=== PATIENT | male | born 1985 | race Asian ===

== ENCOUNTER 2024-12-28 19:25 | Emergency (ER) | payer MEDICAID ==
[~2024-12-28] VITALS: Ht 165.1 cm; Wt 70.0 kg
[2024-12-28 19:30] VITALS: BP 145/111; PULSE 61; RESP 18; TEMP 98.2; O2SAT 95
== END 2024-12-28 20:07 | disposition home or self-care (01) ==
LOC: ER 19:26
DX: S00.531A Contusion of lip, initial encounter (principal); V49.40XA Driver injured in collision with unspecified motor vehicles in traffic accident, initial encounter; Y93.89 Activity, other specified; Y92.89 Other specified places as the place of occurrence of the external cause; Y99.8 Other external cause status
CPT/HCPCS: 99283

== ENCOUNTER 2025-07-03 12:04 | Emergency (ER) | payer MEDICAID ==
[~2025-07-03] VITALS: Ht 162.6 cm; Wt 58.5 kg
[2025-07-03 13:09] LABS: CREATININE 1.25 MG/DL (0.60-1.10); TOTAL CARBON DIOXIDE 28.9 MMOL/L (24-32); eCRCL 66 ML/MIN; eGFR 64 ML/MIN
[2025-07-03 13:30] LABS: MEAN PLATELET VOLUME 8.4 FL (7.4-10.4); RED CELL DISTRIBUTION WIDTH 16.1 % (11.5-14.5)
[2025-07-03 13:57] LABS: BANDS% (MANUAL) 13.0 % (0-10); LARGE PLATELETS FEW; LYMPHOCYTES % (MANUAL) 5.0 % (21-51); MONOCYTES % (MANUAL) 8.0 % (2-12); NEUTROPHILS % (MANUAL) 74.0 % (42-75); PLATELET ESTIMATE NORMAL
[2025-07-03] MEDS: potassium Cl 40MEQ/1/2NS 520ml 520 ML IV ONE (14:33)
[2025-07-03] MEDS: potassium Cl 20 mEq SR tablet PO ONE (14:33)
--- NOTE | 2025-07-03 14:52 | Physician Documentation ---
History of Present Illness Chief Complaint: Abdominal Pain Stated Complaint: GENERAL ILLNESS Time Seen by MD: 13:12 OK to notify your PCP?: Yes Source: patient Mode of Arrival: POV Exam Limitations: no limitations HPI 39 y/o male with c/o abdominal pain which is all over, but mostly LUQ, and started 3days ago. Patient reports he is heavy alcoholic drinking at least a pint of alcohol a day for years. He has never had anything like this before. His last drink of alcohol was two days ago due to his symptoms. He reports he has been nauseated, vomiting and had liquid diarrhea for the past few days as well. He also states he has been intermittently hallucinating and feels tremulous. He was brought in today by his niece who is currently visiting as they are having a family celebration of life for his brother who recently from alcoholism. Niece reports very strong history of alcoholism. No prior abdominal surgeries. Additional note by Mac Aguirre DO: I took over the care of this patient from previous physician. I reviewed any previous notes available, obtain my own history, review of systems and physical examination was performed by myself. 39-year-old gentleman who is here for abdominal pain, history of alcoholism, confirms the story. At the time of my examination he reports an episode of diarrhea where he has stooled on himself while in the hospital bed. It does not report hallucinations. Medication Reconciliation Allergies: Coded Allergies: No Known Allergies (Unverified , 07/03/25) Past Medical History Past Medical History: No Pertinent History Drug Use: none Lives with: Spouse Lives In: Home Review of Systems All Other Systems at this time: Reviewed and Negative ROS 10 point review of systems was performed and unless noted above in HPI is negative for acute process/complaint. Physical Exam Vital Signs: Temperature: 97.2, Source: Temporal, Heart Rate: 102, Respiratory Rate: 20, BP: 112/85, Pulse Oximetry: 100, Weight: 58.500 Oxygen Flow Rate: 10.0 Physical Exam GENERAL: Alert, no acute distress. HEENT: NCAT, EOMI, PERRL, normal oropharynx, moist oral mucosa. NECK: Supple, trachea midline. CARDIAC: Regular rhythm, ELEVATED RATE, no murmurs, rubs, or gallops. Equal distal pulses. No lower extremity edema, cap refill less than 2 seconds. RESPIRATORY: Equal breath sounds, clear to auscultation bilaterally, no respiratory distress. GASTROINTESTINAL: Non distended, soft, TTP IN LUQ AND RUQ, No guarding or r ebound. MUSCULOSKELETAL: Normal range of motion, nontender, no swelling. Normal gait. NEUROLOGICAL: Awake, alert, and oriented x 3. SKIN: Warm/dry, no pallor, no rash. PSYCH: Alert and appropriate. Affect congruent with mood. Speech is clear. Good eye contact. Additional note by Mac Aguirre, DO: I took over the care of this patient from previous physician. I reviewed any previous notes available, obtain my own history, review of systems and physical examination was performed by myself. General: Alert to self, place, time, situation. No acute distress. Cardiac: Tachycardic regular. Abdomen: Left upper quadrant tenderness to palpation reproducing chief complaint. No guarding, no rebound. Psych: Occasionally is response to internal stimuli Progress Progress Note SPOKE WITH DR. IZAGUIRRE WHO REVIEWED THE CT SCAN AND FELT THAT THE MASS NEAR THE P ANCREAS AND SPLEEN IS NOT AN ABSCESS BUT MORE CONSISTENT WITH PSEUDOCYST AND FELT PATIENT WAS APPROPRIATE FOR ADMISSION HERE DID NOT FEEL THIS WAS THE CAUSE OF HIS ACUTE SYMPTOMS. PAGE SENT TO HOSPITALIST FOR ADMISSION. SPOKE WITH HOSPITALIST WHO DID NOT FEEL COMFORTABLE ADMITTING HERE DUE TO THE POSSIBILITY THAT THE FLUID COLLECTION IS SOURCE OF PATIENT'S WBC AND RECOMMENDED TRANSFER DISCUSSED WITH ENROLLMENT REPRESENTATIVE TRANSFER TO [facility]. CT SCAN RESULTS BELOW: EXAM: CT CT CHEST ABDOMEN PELVIS IV CON INDICATION: SOB, ABDOMINAL PAIN, SEPSIS TECHNIQUE: Volumetric multidetector CT images of the chest, abdomen and pelvis were obtained after the administration of IV contrast. All CT scans at this facility use dose modulation, iterative reconstruction, and/or weight based dosing when appropriate to reduce radiation dose to as low as reasonably achievable. COMPARISON: None FINDINGS: LOWER NECK: Unremarkable LYMPH NODES/MEDIASTINUM: No abnormal lymph nodes by CT size criteria. CARDIOVASCULAR: Normal cardiac size. No pericardial effusion. No aneurysmal dilatation of the great vessels. LUNG PARENCHYMA/PLEURAL SPACE: Trace left pleural effusion. Atelectasis in bilateral lung bases. Minimal tracheal secretions CHEST WALL: Mild bilateral gynecomastia. LIVER: Hepatomegaly with geographic areas of hypoattenuation which may represent fatty deposition. Slight volume and contour change may be indicative of chronic liver disease GALLBLADDER/BILIARY TREE: Layering cholelithiasis SPLEEN: Unremarkable. PANCREAS: Significant pancreatic tail peripancreatic abscess formation with thick-walled appearance. Abnormal abscess/fluid collections extending into the perisplenic space causing mass effect abscess is largely contiguous and inferior most portion which is dominant in size measures 11.5 x 9.9 x 16 cm. Sequelae of chronic pancreatitis with coarse calcification. Likely superimposed acute on chronic pancreatitis with interstitial marginal edema ADRENAL GLANDS: Unremarkable KIDNEYS: No hydronephrosis. BLADDER: Unremarkable for the degree distention. PELVIC ORGANS: Unremarkable. BOWEL/MESENTERY: Mass effect and decompression of the stomach fluid in the colon correlate for loose stool. ASCITES: Absent LYMPHADENOPATHY: Multiple likely reactive retroperitoneal lymph nodes VASCULATURE: No aneurysmal dilatation. ABDOMINAL WALL: Unremarkable. MUSCULOSKELETAL: No acute fracture or aggressive focal osseous lesion. IMPRESSION: 1. Significant pancreatic tail peripancreatic abscess formation with thick- walled appearance. Abnormal abscess/fluid collections extending into the perisplenic space causing mass effect abscess is largely contiguous and inferior most portion which is dominant in size measures 11.5 x 9.9 x 16 cm. 2. Likely superimposed acute on chronic pancreatitis with interstitial marginal edema Patient: FREDI ACEVES Medical Record: [id number] [facility] : 1985, Age: 39 Sex: Male Location: ER Patient Status: [facility] ER Service Date/Time: 07/03/251321 Ordering Physician: RADHA YOUNG Exam: ULTRASOUND OF ABDOMEN ABDOMINAL ULTRASOUND CLINICAL HISTORY: elevated bilirubin, alk phos TECHNIQUE: Multiple grayscale and color Doppler ultrasound images were obtained of the abdomen. WID: COMPARISON: None FINDINGS: Liver and Biliary System: Homogeneous echotexture, normal size measuring 17.11 cm. No focal hepatic observations. No intrahepatic bile duct dilatation. The common duct measures 0.4 cm at the yoko hepatis. The gallbladder contains multiple mobile stones. Gallbladder wall measures 3.4 mm. The sonographic Seymour's sign is negative. The gallbladder is normal caliber.. Pancreas: Visualized portions are unremarkable. Spleen: Is enlarged measuring 13.4 cm. Kidneys: The right kidney is 10.55 cm and the left kidney is 11.3 cm. No hydronephrosis, increased echogenicity, shadowing stone, or focal lesion. Aorta: Visualized portions are normal in caliber. IVC: Visualized portions are normal in caliber. There is a heterogeneous cystic mass adjacent to the pancreas and spleen and adjacent to the left kidney. This measures at least 13.4 x 9.0 x 10.7 cm. IMPRESSION: 1. Cholelithiasis without acute cholecystitis or biliary ductal dilatation. 2. Large heterogeneous cystic mass in the upper abdomen adjacent to the pancrea s, spleen, and left kidney. This is not optimally evaluated on this study and will be characterized on the CT chest abdomen and pelvis that is ordered for today. 3. Mild hepatosplenomegaly. Results/Orders Reviewed/noted all lab results: Yes Results/Orders Orders - RADHA YOUNG Ekg/Acs Symptoms, 12 Hr (07/03/25 ) Potassium Cl 40meq/1/2ns 520ml ([place] (07/03/25 13:25) Observation Status Start (07/03/25 13:22) Ultrasound Of Abdomen (07/03/25 13:22) Culture Blood (07/03/25 13:50) Magnesium Sulf-Water 2g/50ml (Magnesium (07/03/25 14:40) Observation Status Start (07/03/25 14:36) Hs Troponin I W Calculations (07/03/25 14:36) Hs Troponin I W Calculations (07/03/25 16:36) Hs Troponin I W Calculations (07/03/25 17:36) Ct Chest Abdomen Pelvis Iv Con (07/03/25 14:34) Completed Orders - RADHA YOUNG Potassium Cl Sr Tablet (K-Dur Tablet) (07/03/25 13:25) Procalcitonin (07/03/25 13:50) Lacticsepsis (07/03/25 13:50) Medications Received in ER Medications (Trade) Dose Ordered Sig/Bong Route PRN Reason Start Time Stop Time Status Last Admin Dose Admin (K-DUR tablet) 40 meq ONCE ONCE PO 07/03/25 13:25 07/03/25 13:28 DC 07/03/25 14:33 40 MEQ Potassium Chloride 520 ml @ 130 mls/hr ONCE ONCE IV 07/03/25 13:25 07/03/25 17:24 07/03/25 14:33 130 MLS/HR Vital Signs 07/03/25 07/03/25 07/03/25 12:07 13:31 13:34 Temp 97.2 Pulse 118 102 Resp 19 21 20 B/P (MAP) 112/77 112/85 (94) Pulse Ox 99 100 O2 Flow Rate 10.0 Laboratory Tests Test 07/03/25 12:20 White Blood Count 20.0 H Red Blood Count 3.51 L Hemoglobin 11.9 L Hematocrit 33.4 L Mean Corpuscular Volume 95.2 Mean Corpuscular Hemoglobin 33.8 H Mean Corpuscular Hemoglobin Concent 35.5 Red Cell Distribution Width 16.1 H Platelet Count 227 Mean Platelet Volume 8.4 Neutrophils (%) (Auto) 86.1 H Lymphocytes (%) (Auto) 3.8 L Monocytes (%) (Auto) 9.8 Eosinophils (%) (Auto) 0 Basophils (%) (Auto) 0.3 Neutrophils # (Auto) 17.2 H Lymphocytes # (Auto) 0.8 L Monocytes # (Auto) 2.0 H Eosinophils # (Auto) 0.0 Basophils # (Auto) 0.1 CBC Comment Differential Total Cells Counted 100 Neutrophils % (Manual) 74.0 Band Neutrophils % 13.0 H Lymphocytes % (Manual) 5.0 L Monocytes % (Manual) 8.0 Toxic Granulation 1+ Toxic Vacuolation 1+ Platelet Estimate Normal Large Platelets Few Red Blood Cell Morphology Perf Polychromasia Few Basophilic Stippling Anisocytosis 1+ Macrocytosis 1+ Rouleau 1+ Sodium Level 126 L Potassium Level 2.2 *L Chloride Level 84 L Carbon Dioxide Level 28.9 Anion Gap 13 Blood Urea Nitrogen 16 Creatinine 1.25 H Estimated GFR/1.73 m2 64 BUN/Creatinine Ratio 12.8 Glucose Level 160 H Lactic Acid Level 2.1 H Calcium Level 7.5 L Magnesium Level 1.0 *L Total Bilirubin 2.9 H Aspartate Amino Transf (AST/SGOT) 104 H Alanine Aminotransferase (ALT/SGPT) 51 Alkaline Phosphatase 222 H Total Protein 8.3 H Albumin 2.5 L Globulin 5.8 H Albumin/Globulin Ratio 0.4 L Lipase 81 H Procalcitonin 14.25 H Chemistry Comments Medical Decision Making Findings Facility Status: ED Holds, E process The plan was discussed with the patient, who demonstrates clear understanding of the plan and is in agreement with the plan unless otherwise noted in the chart. All questions have been answered, all concerns were addressed unless otherwise documented. I was available throughout their ED stay for frequent reassessment and questions. Differential Diagnoses (considered and possible or likely): [Differential diagnosis considered includes acute appendicitis, acute cholecystitis, pancreati tis, gastritis, PUD, diverticulitis, mesenteric ischemia, abdominal aortic aneurysm, bowel obstruction, enteritis, colitis, fecal impaction, volvulus, IBS, inflammatory bowel disease, specific food intolerance, peritonitis, perforated viscous, malignancy, UTI, abscess, and abdominal pain NOS. History, physical exam, and workup exclude many of the more serious causes listed above. ] Additionally, dehydration, electrolyte derangement, alcoholic ketoacidosis, alcohol withdrawal with a without delirium, with a without seizure, less likely alcohol intoxication. ??Differential Diagnoses (considered and unlikely, not requiring evaluation currently): [No evidence of lateralizing signs to suspect a stroke] MDM Data Please see [facility] for the following: Independent Historians and external Records Review. Historian: [Patient] Independent Historians: ?[Record review] Medication Management: [Reviewed medication list] Social History and determinants: [Reviewed] Please see the body of the note for the following: Any independent interpretations of ECG, imaging studies. All vitals signs/haemodynamics, ordered tests were independently reviewed and interpreted by myself. Nursing triage complaint and vitals reviewed, additional nursing notes were reviewed as available and I agree unless otherwise noted or documented in contr adiction in the chart Vital Signs: Independently reviewed Labs: Independently interpreted Imaging: Independently interpreted Old Medical Records: Independently reviewed, see [facility] for relevant summary and information Pulse Oximetry: [97%] interpreted as [normal on room air] by me [Tapeman: Tachycardic Rate, Regular rhythm, no ectopy, sinus tachycardic. reviewed and interpreted by me] Additionally notably showing: [Hemodynamics reviewed. He is fairly persistent that he had tachycardic despite of administration of Ativan. Mildly tachypneic. Not hypotensive. No evidence of hypoxia. Laboratory studies reviewed. He does have leukocytosis, 86% neutrophilic predominance. Mild anemia with a limited 0.9. Normal platelets. He has a 13% bands. Chemistry reviewed. Hyponatremia of 126 noted. Potassium is only 2.2. Magnesium is 1.0. He does have mild SIDNEY with a creatinine of 1.25. Lactic acid slightly elevated, most likely related to alcoholism rather than infection. Lipase is slightly elevated. Total bilirubin elevated at 2.9. [facility] this is nondiagnostic for UTI. Ultrasound of the abdomen showed cholelithiasis without cholecystitis. I note that a large heterogenous cystic mass. CT was obtained showing a large pancreatic tail peripancreatic abscess. Fluid appears to be extending into the perisplenic space was not mass effect. Acute on chronic pancreatitis noted.] Tests considered but not ordered include: [Not applicable, exhaustive workup was obtained] Social Determinants of Health Impact: Patient was evaluated in [facility] [place] to healthcare due to below par ratio of patient to medical providers. [] Comorbid Conditions Impacting Present Evaluation and Care/Treatment: [Alcoholi sm] Management Discussions with other Healthcare Providers: [The PA of Record spoke with Dr. Izaguirre, see her note. The PA of record also spoke local hospitalist who does not want to admit the patient has locally, feels that it will need either specialist surgery was specialized interventional radiology. Recommends transfer.] Treatment and Disposition Medication Management (Given or considered): [Electrolyte repletion, pain management, fluid resuscitation]. See EMR for details Consideration for Hospitalization/Escalation/Deescalation of Care: Transfer for hospitalization and inpatient stay has been considered, and is necessary for further management of his peripancreatic abscess. ?ED Course:?[Required repeated evaluation, escalation of care for his alcohol withdrawal.] ?Shared decision making:?[] Code status:?FULL Please see the full Electronic Medical Record for full details of nursing documentation, medications list, other records of complete past medical history and conditions, vital signs, laboratory studies, and any radiologic study interpretations by radiologists. Portions of this note were completed using Xamarin dictation software and as a result there may exist minor errors in spelling. I have reviewed elements of past family and social history and agree as included in note. Differential Dx:Considerations: Include: AAA, Angina/CT, Aortic dissection, A ppendicitis, Bowel obstruction, Cholangitis, Cholelithasis, Constipation, Diverticular disease, Esophageal rupture, Esophagitis, Gastritis/PUD, Gastroenteritis, GI hemorrhage, Hernia, Hepatitis, Inflammatory BD, Ischemic bowel, Pancreatitis, Porphyria, Testicular torsion, Trauma, intraabdominal, Urinary obstruction, Urinary tract infection, Urolithiasis Departure Time of Disposition: 14:52 Disposition: 02 [facility]ORT [facility] Admitted to Inpatient Unit: to hospitalist Impression: Primary Impression: Abdominal pain Qualified Codes: R10.84 - Generalized abdominal pain Additional Impressions: Nausea & vomiting Qualified Codes: R11.2 - Nausea with vomiting, unspecified Diarrhea Qualified Codes: R19.7 - Diarrhea, unspecified Alcohol withdrawal hallucinosis Hypokalemia Sepsis Qualified Codes: A41.9 - Sepsis, unspecified organism Cystic mass of pancreas Hyponatremia Hypomagnesemia Pancreatic abscess Altered mental status Condition: Critical Referrals: NO PRIMARY CARE PROVIDER (PCP) Education Educated: Patient Educated regarding: diagnosis, treatment, need for follow up Critical Care Note Critical Care Note CRITICAL CARE TIME: [75 ] minutes Treatments/Evaluations: Close monitoring and treatment of unstable vital signs, cardiorespiratory, and neurologic status, while maintaining tight balance of fluid, respiratory, and cardiac interventions. This time includes discussing the case with the patient and the patients family. This time does not include all procedures stated elsewhere in this record. This time also includes reviewing old records, labs and radiological studies. This time includes examining and re- examining the patient. Additionally, this time also includes arranging care with admitting and consulting physicians. Additional Comment Additional Comment Date: Jul 03, 2025 Time: 22:36 Patient was accepted to [facility] by Dr. Villalta. Signature Scribe Signature: X No scribe Attestation: The note accurately reflects work and decisions made by me.Reji West MD 07/06/25 08:15 X This note accurately reflects clinical decisions, work performed by myself, Mac Aguirre DO Addendum 0640: Dr. West discussed the case with internal medicine physician at [facility], who accepts the patient for transfer. Scribed for Reji West MD by Aneta Wells . 07/05/25 06:57 RADHA YOUNG Jul 03, 2025 14:52 MAC AGUIRRE DO Jul 03, 2025 20:31 ANETA PEDRAZA Jul 05, 2025 06:57 REJI WEST MD Jul 06, 2025 08:15
[2025-07-03] MEDS: magnesium sulf-water 2g/50mL 50 ML IV SCH (15:10)
[2025-07-03] MEDS: piperacillin/tazo 3.375gm/50ml 50 ML IV ONE (15:18)
[2025-07-03] MEDS: normal saline 1000ML IV soln IVB ONE (15:18)
--- NOTE | 2025-07-03 15:48 | RADIOLOGY REPORT ---
ABDOMINAL ULTRASOUND CLINICAL HISTORY: elevated bilirubin, alk phos TECHNIQUE: Multiple grayscale and color Doppler ultrasound images were obtained of the abdomen. WID: COMPARISON: None FINDINGS: Liver and Biliary System: Homogeneous echotexture, normal size measuring 17.11 cm. No focal hepati c observations. No intrahepatic bile duct dilatation. The common duct measures 0.4 cm at the yoko hepatis. The gallbladder contains multiple mobile stones. Gallbladder wall measures 3.4 mm. The sonographic Seymour's sign is negative. The gallbladder is normal caliber.. Pancreas: Visualized portions are unremarkable. Spleen: Is enlarged measuring 13.4 cm. Kidneys: The right kidney is 10.55 cm and the left kidney is 11.3 cm. No hydronephrosis, increased echogenicity, shadowing stone, or focal lesion. Aorta: Visualized portions are normal in caliber. IVC: Visualized portions are normal in caliber. There is a heterogeneous cystic mass adjacent to the pancreas and spleen and adjacent to the left kid adrianne. This measures at least 13.4 x 9.0 x 10.7 cm. IMPRESSION: 1. Cholelithiasis without acute cholecystitis or biliary ductal dilatation. 2. Large heterogeneous cystic mass in the upper abdomen adjacent to the pancreas, spleen, and left ki dney. This is not optimally evaluated on this study and will be characterized on the CT chest abdomen and pelvis that is ordered for today. 3. Mild hepatosplenomegaly.
--- NOTE | 2025-07-03 16:19 | RADIOLOGY REPORT ---
EXAM: CT CT CHEST ABDOMEN PELVIS IV CON INDICATION: SOB, ABDOMINAL PAIN, SEPSIS TECHNIQUE: Volumetric multidetector CT images of the chest, abdomen and pelvis were obtained after th e administration of IV contrast. All CT scans at this facility use dose modulation, iterative reconst ruction, and/or weight based dosing when appropriate to reduce radiation dose to as low as reasonably achievable. COMPARISON: None FINDINGS: LOWER NECK: Unremarkable LYMPH NODES/MEDIASTINUM: No abnormal lymph nodes by CT size criteria. CARDIOVASCULAR: Normal cardiac size. No pericardial effusion. No aneurysmal dilatation of the great v essels. LUNG PARENCHYMA/PLEURAL SPACE: Trace left pleural effusion. Atelectasis in bilateral lung bases. Mini mal tracheal secretions CHEST WALL: Mild bilateral gynecomastia. LIVER: Hepatomegaly with geographic areas of hypoattenuation which may represent fatty deposition. Sl ight volume and contour change may be indicative of chronic liver disease GALLBLADDER/BILIARY TREE: Layering cholelithiasis SPLEEN: Unremarkable. PANCREAS: Significant pancreatic tail peripancreatic abscess formation with thick-walled appearance. Abnormal abscess/fluid collections extending into the perisplenic space causing mass effect abscess i s largely contiguous and inferior most portion which is dominant in size measures 11.5 x 9.9 x 16 cm. Sequelae of chronic pancreatitis with coarse calcification. Likely superimposed acute on chronic pa ncreatitis with interstitial marginal edema ADRENAL GLANDS: Unremarkable KIDNEYS: No hydronephrosis. BLADDER: Unremarkable for the degree distention. PELVIC ORGANS: Unremarkable. BOWEL/MESENTERY: Mass effect and decompression of the stomach fluid in the colon correlate for loose stool. ASCITES: Absent LYMPHADENOPATHY: Multiple likely reactive retroperitoneal lymph nodes VASCULATURE: No aneurysmal dilatation. ABDOMINAL WALL: Unremarkable. MUSCULOSKELETAL: No acute fracture or aggressive focal osseous lesion. IMPRESSION: 1. Significant pancreatic tail peripancreatic abscess formation with thick-walled appearance. Abnorma l abscess/fluid collections extending into the perisplenic space causing mass effect abscess is large ly contiguous and inferior most portion which is dominant in size measures 11.5 x 9.9 x 16 cm. 2. Likely superimposed acute on chronic pancreatitis with interstitial marginal edema
[2025-07-03 17:02] LABS: LEUKOCYTE ESTERASE ,URINE NEGATIVE (Neg); OCCULT BLOOD,URINE TRACE-INTACT (Neg)
[2025-07-03 17:08] LABS: NITRITES, URINE NEGATIVE (Neg); UA COLLECTION TYPE CLN CATCH MIDSTREAM
[2025-07-03 17:09] LABS: AMORPHOUS URATES 1+; MUCUS STRANDS FEW /LPF (Neg); SQUAMOUS EPITHELIAL CELL,UR NONE SEEN /LPF (FEW)
[2025-07-03] MEDS ORDERED: POTASSIUM BICARBONATE/CIT AC 10 MEQ TABLET.EFF PO SCH (20:20)
[2025-07-03] MEDS: folic acid 1mg/0.2ml inj IV ONE (20:30)
[2025-07-03] MEDS: thiamine 100mg/ml 2ml inj. IV ONE (20:31)
[2025-07-03] MEDS: POTASSIUM BICARBONATE/CIT AC 10 MEQ TABLET.EFF PO ONE (20:54)
[2025-07-03] MEDS: potassium CL 10mEq/100ml bag 100 ML IV SCH (21:08)
[2025-07-03 22:17] LABS: CREATININE 1.35 MG/DL (0.60-1.10); TOTAL CARBON DIOXIDE 26.9 MMOL/L (24-32); eCRCL 61 ML/MIN; eGFR 59 ML/MIN
[2025-07-04 03:22] LABS: CREATININE 1.17 MG/DL (0.60-1.10); TOTAL CARBON DIOXIDE 22.6 MMOL/L (24-32); eCRCL 70 ML/MIN; eGFR 69 ML/MIN
[2025-07-04] MEDS ORDERED: potassium Cl 20 mEq SR tablet PO STA (05:09)
[2025-07-04] MEDS: potassium Cl 20 mEq SR tablet PO PRN (05:39)
[2025-07-04 10:00] LABS: CREATININE 0.99 MG/DL (0.60-1.10); TOTAL CARBON DIOXIDE 23.1 MMOL/L (24-32); eCRCL 83 ML/MIN; eGFR 84 ML/MIN
[2025-07-04] MEDS: potassium Cl 40MEQ/1/2NS 520ml 520 ML IV ONE (10:41)
[2025-07-04] MEDS: potassium Cl 20 mEq SR tablet PO ONE (10:41)
[2025-07-04] MEDS: piperacillin/tazo 3.375gm/50ml 50 ML IV ONE (10:41)
[2025-07-04 17:27] LABS: CREATININE 0.86 MG/DL (0.60-1.10); TOTAL CARBON DIOXIDE 23.9 MMOL/L (24-32); eCRCL 95 ML/MIN; eGFR > 90 ML/MIN
[2025-07-04] MEDS ORDERED: piperacillin/tazo 3.375gm/50ml 50 ML IV SCH ×2 (20:40→20:45)
[2025-07-04] MEDS: ondansetron/PF 4mg/2ml inj IV ONE (20:54)
[2025-07-04] MEDS: piperacillin/tazo 3.375gm/50ml 50 ML IV SCH (20:55)
[2025-07-05] MEDS: ibuprofen tablet 400 MG TABLET PO ONE (00:02)
[2025-07-05 00:28] LABS: CREATININE 1.01 MG/DL (0.60-1.10); TOTAL CARBON DIOXIDE 23.0 MMOL/L (24-32); eCRCL 81 ML/MIN; eGFR 82 ML/MIN
[2025-07-05] MEDS: normal saline 1000ML IV soln IVB ONE ×2 (07:07→08:02)
[2025-07-05] MEDS ORDERED: piperacillin/tazo 3.375gm/50ml 50 ML IV SCH (08:00)
[2025-07-05] MEDS ORDERED: normal saline 1000ML IV soln IVB ONE ×2 (08:50)
[2025-07-05 09:54] VITALS: BP 101/73; PULSE 118; RESP 24; TEMP 98.9; O2SAT 94
== END 2025-07-05 09:57 | disposition short-term general hospital (02) ==
LOC: ER 12:05
DX: K85.90 Acute pancreatitis without necrosis or infection, unspecified (principal); E87.6 Hypokalemia; E87.1 Hypo-osmolality and hyponatremia; E83.42 Hypomagnesemia; R41.82 Altered mental status, unspecified; A41.9 Sepsis, unspecified organism; R11.2 Nausea with vomiting, unspecified; R19.7 Diarrhea, unspecified; F10.232 Alcohol dependence with withdrawal with perceptual disturbance; Z02.3 Encounter for examination for recruitment to armed forces; Y90.9 Presence of alcohol in blood, level not specified
CPT/HCPCS: 36415; 71260; 74177; 76700; 80048; 80053; 81001; 82948; 83605; 83690; 83735; 84132; 84145; 84484; 85007; 85025; 87040; 96365; 96366; 96368; 96372; 96375; 99291; J2270; J2405; J2543; J2560; J3411; J3420; J3480; J3490; J7030; A4615